=== PATIENT | female | born 1985 | race Caucasian/White ===

== ENCOUNTER 2018-02-07 06:15 | Day surgery (SDC) | payer OTHER ==
[2018-02-07] MEDS ORDERED: PROPOFOL 0 ML (07:28)
[2018-02-07] MEDS ORDERED: LIDOCAINE 2% (SDV) 5 ML INJ ×2 (07:28→07:29)
[2018-02-07] MEDS ORDERED: PROPOFOL 60 ML (07:29)
[2018-02-07] MEDS ORDERED: ONDANSETRON 4 MG INJ (07:36)
[2018-02-07] MEDS ORDERED: PROPOFOL 20 ML (08:18)
[2018-02-07] MEDS ORDERED: FAMOTIDINE 20 MG INJ (08:31)
== END 2018-02-10 14:58 | disposition home or self-care (01) ==
LOC: GIL 06:15
DX: Q43.8 Other specified congenital malformations of intestine (principal); K64.4 Residual hemorrhoidal skin tags; K21.0 Gastro-esophageal reflux disease with esophagitis; K29.70 Gastritis, unspecified, without bleeding; Z87.891 Personal history of nicotine dependence
CPT/HCPCS: 43239; 84703; 88305; 88312